=== PATIENT | female | born 1970 | race African-American/Black ===

== ENCOUNTER 2022-01-31 15:34 | Emergency (ER) | payer BC ==
[2022-01-31 15:50] VITALS: BMI 25.7
[2022-01-31] MEDS ORDERED: methylPREDNISolone NA SUCC 125 MG/2 ML VIAL IVPUSH ONE (16:36)
[2022-01-31] MEDS ORDERED: FAMOTIDINE 20 MG/50 ML IVPB 20 MG/50 ML MG IVPB ONE ×2 (16:36→16:51)
[2022-01-31] MEDS ORDERED: methylPREDNISolone NA SUCC 125 MG/2 ML VIAL ONE (16:51)
[2022-01-31 20:08] VITALS: BP 126/82; PULSE 80; TEMP 98.1
== END 2022-01-31 20:09 | disposition home or self-care (01) ==
LOC: JER 15:34
PROC: 3E033GC Introduction of Other Therapeutic Substance into Peripheral Vein, Percutaneous Approach (ICD-10-PCS; principal; 2022-01-31)
PROC: 3E033GC Introduction of Other Therapeutic Substance into Peripheral Vein, Percutaneous Approach (ICD-10-PCS; 2022-01-31)
PROC: 3E033GC Introduction of Other Therapeutic Substance into Peripheral Vein, Percutaneous Approach (ICD-10-PCS; 2022-01-31)
DX: R22.0 Localized swelling, mass and lump, head (principal)
CPT/HCPCS: 96372; 96374; 96375; 99284-25

== ENCOUNTER 2023-09-12 13:46 | Emergency (ER) | payer OTHER ==
[2023-09-12 14:13] VITALS: BP 124/68; PULSE 61; RESP 17; TEMP 98.2; BMI 32.1
[2023-09-12] MEDS ORDERED: LIDOCAINE 5% TOPICAL PATCH TP ONE (15:55)
[2023-09-12] MEDS ORDERED: KETOROLAC TROMETHAMINE 30 MG/1 ML VIAL IM ONE (15:55)
[2023-09-12] MEDS ORDERED: KETOROLAC TROMETHAMINE 30 MG/1 ML VIAL ONE (16:28)
[2023-09-12] MEDS ORDERED: LIDOCAINE PATCH REMOVAL MC ONE (22:00)
== END 2023-09-12 17:41 | disposition home or self-care (01) ==
LOC: JERFT 13:46
PROC: 3E0233Z Introduction of Anti-inflammatory into Muscle, Percutaneous Approach (ICD-10-PCS; principal; 2023-09-12)
DX: M25.562 Pain in left knee (principal); M25.462 Effusion, left knee
CPT/HCPCS: 73562-TC-LT-FY; 99284-25